=== PATIENT | male | born 1965 | race Caucasian/White ===

== ENCOUNTER 2023-05-04 19:53 | Emergency (ER) | payer MEDICAID ==
[~2023-05-04] VITALS: Ht 167.6 cm; Wt 74.8 kg
[2023-05-04] MEDS ORDERED: predniSONE 20 MG TABLET ONE (21:20)
[2023-05-04] MEDS: predniSONE 20 MG TABLET PO ONE (21:20)
[2023-05-04 21:22] VITALS: O2SAT 96
[2023-05-04] MEDS: IPRATROPIUM NEB FS 0.5 MG/2.5 ML AMPUL.NEB NEB ONE (21:22)
[2023-05-04] MEDS: ALBUTEROL FS 2.5 MG/3 ML VIAL.NEB NEB ONE (21:22)
[2023-05-04] MEDS ORDERED: IPRATROPIUM NEB FS 0.5 MG/2.5 ML AMPUL.NEB ONE (21:23)
[2023-05-04] MEDS ORDERED: ALBUTEROL FS 2.5 MG/3 ML VIAL.NEB ONE (21:23)
[2023-05-04] MEDS ORDERED: PRED50TA PO (21:36)
[2023-05-04 21:39] VITALS: O2SAT 99
[2023-05-04 21:57] VITALS: BP 118/69; TEMP 98.2; O2SAT 99
== END 2023-05-04 22:12 | disposition home or self-care (01) ==
LOC: ER 19:59
DX: J45.901 Unspecified asthma with (acute) exacerbation (principal)
CPT/HCPCS: 99283; 71045; 93005; 94640; J7512

== ENCOUNTER 2024-02-22 06:28 | Emergency (ER) | payer MEDICAID ==
[~2024-02-22] VITALS: Ht 170.2 cm; Wt 74.8 kg
[~2024-02-22 06:28] MED LIST: PRED50TA PO
[2024-02-22] MEDS ORDERED: methylPREDNISolone SOD SUCC 125 MG/2ML VIAL ONE (06:47)
[2024-02-22] MEDS ORDERED: IPRATROPIUM NEB FS 0.5 MG/2.5 ML AMPUL.NEB ONE (07:02)
[2024-02-22] MEDS ORDERED: ALBUTEROL FS 2.5 MG/3 ML VIAL.NEB ONE (07:02)
[2024-02-22 07:08] VITALS: O2SAT 93
[2024-02-22] MEDS: ALBUTEROL FS 2.5 MG/3 ML VIAL.NEB CONTNEB ONE (07:08)
[2024-02-22] MEDS: IPRATROPIUM NEB FS 0.5 MG/2.5 ML AMPUL.NEB NEB ONE (07:08)
[2024-02-22 07:21] LABS: BASOPHILS % (AUTO) 0.3 % (0.0-2.0); EOSINOPHILS # (AUTO) 0.2 K/uL (0.0-0.7); EOSINOPHILS % (AUTO) 2.3 % (0.0-6.0); HEMATOCRIT 50 % (39-51); HEMOGLOBIN 16.7 g/dL (13.5-17.5); LYMPHOCYTES # (AUTO) 2.1 K/uL (0.8-4.8); LYMPHOCYTES % (AUTO) 19.7 % (20.0-44.0); MEAN CORPUSCULAR HEMOGLOBIN 29 PG (26.0-33.0); MEAN CORPUSCULAR HGB CONC 33 g/dl (31.0-36.0); MEAN CORPUSCULAR VOLUME 86 fL (80-96); MONOCYTES % (AUTO) 9.8 % (2.0-12.0); NEUTROPHILS # (AUTO) 7.3 K/uL (1.8-8.9); NEUTROPHILS % (AUTO) 67.9 % (43.0-81.0); PLATELET COUNT (AUTO) 203 K/uL (150-450); RED BLOOD CELL COUNT(AUTO) 5.79 MIL/uL (4.5-6.0); RED CELL DISTRIBUTION WIDTH 14.1 % (11.5-15.0); WHITE BLOOD COUNT (AUTO) 10.7 K/uL (4.3-11.0)
[2024-02-22 07:29] LABS: CALCIUM, SERUM 8.3 mg/dL (8.5-10.1); CARBON DIOXIDE 27 mmol/L (21-32); CHLORIDE 105 mmol/L (98-107); CREATININE 0.8 mg/dL (0.6-1.3); GLUCOSE 122 mg/dL (74-106); POTASSIUM 4.2 mmol/L (3.5-5.1); SODIUM SERUM 138 mmol/L (136-145); UREA NITROGEN, BLOOD 16 mg/dL (7-18)
[2024-02-22] MEDS: methylPREDNISolone SOD SUCC 125 MG/2ML VIAL IV ONE (07:30)
[2024-02-22 07:36] LABS: LACTIC ACID 1.2 mmol/L (0.4-2.0)
[2024-02-22 07:43] LABS: ALANINE AMINOTRANSFERASE 37 U/L (12-78); ALBUMIN 2.9 g/dL (3.4-5.0); ALKALINE PHOSPHATASE 147 U/L (46-116); ASPARTATE AMINOTRANSFERASE 22 U/L (15-37); BILIRUBIN,DIRECT 0.1 mg/dL (0.0-0.2); BILIRUBIN,TOTAL 0.3 mg/dL (0.2-1.0); TOTAL PROTEIN, SERUM 6.8 g/dL (6.4-8.2)
[2024-02-22 07:52] VITALS: O2SAT 100
[2024-02-22] MEDS ORDERED: ALBU18HF2 INH (08:13)
[2024-02-22] MEDS ORDERED: PRED20TA PO (08:13)
[2024-02-22] MEDS ORDERED: BENZ-13 PO (08:13)
[2024-02-22] MEDS: BENZONATATE 100 MG CAPSULE PO PRN (08:19)
[2024-02-22 08:23] VITALS: BP 124/73; TEMP 98; O2SAT 98
== END 2024-02-22 08:24 | disposition home or self-care (01) ==
LOC: ER 06:31
DX: J06.9 Acute upper respiratory infection, unspecified (principal); J20.9 Acute bronchitis, unspecified; F17.200 Nicotine dependence, unspecified, uncomplicated; Z79.52 Long term (current) use of systemic steroids; Z20.822 Contact with and (suspected) exposure to COVID-19
CPT/HCPCS: 99285; 96374; 71045; 87426; 93005; 87804 ×2; 85025; 80048; 87040 ×2; 83605; 80076; 36415; 84484; 83880; 94644; J2919